=== PATIENT | female | born 1935 | race Caucasian/White ===

== ENCOUNTER → 2017-11-22 08:22 | Outpatient (CLI) | payer MEDICARE, SELFPAY ==
--- NOTE | 2017-11-22 17:41 | LEAS ---
Arterial Study - Arterial Study Arterial Study: Bilateral lower extremity noninvasive arterial exam at rest Right lower extremity The right low thigh index is abnormal at 0.56. The right calf index is 0.58. The right PT and DP ankle-brachial indices at rest are 0.53 and 0.38 respectively. Doppler waveforms are only monophasic at the ankle. Volume pulse recordings do not demonstrate amplification the calf. Ankle waveforms are moderately depressed while digital waveforms are significantly flattened. Left lower extremity. The left posterior tibial and dorsalis pedis waveforms and flow could not be detected. No flow no Doppler waveforms obtained. No indices obtainable. 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 Findings are within the range of rest pain with significant degenerative disease bordering upon critical ischemia. Left lower extremity demonstrates no arterial vascular flow throughout. Carroll Marks M.D., F.A.C.S.
== END ==
PROVIDERS: Family Provider Family Medicine; PCP Family Medicine; Referring Provider Surgery; Visit Provider Surgery
DX: L81.9 Disorder of pigmentation, unspecified (principal); I73.9 Peripheral vascular disease, unspecified
CPT/HCPCS: 93923